=== PATIENT | male | born 1995 | race African-American/Black ===

== ENCOUNTER 2020-10-18 09:36 | Emergency (ER) | payer SELFPAY ==
[~2020-10-18] VITALS: Ht 175.3 cm; Wt 76.2 kg
[2020-10-18] MEDS ORDERED: ATIVAN2 MG PO (10:29)
== END 2020-10-18 10:38 | disposition home or self-care (01) ==
LOC: FSED 10:05
DX: F43.9 Reaction to severe stress, unspecified (principal); R94.31 Abnormal electrocardiogram [ECG] [EKG]
CPT/HCPCS: 93005; 99283

== ENCOUNTER 2020-10-25 13:02 | Emergency (ER) | payer SELFPAY ==
[~2020-10-25] VITALS: Ht 175.3 cm; Wt 76.2 kg
[~2020-10-25 13:02] MED LIST: ATIVAN2 MG PO
[2020-10-25] MEDS ORDERED: ATIVAN0.5 MG PO (14:10)
[2020-10-25 14:25] VITALS: BP 134/64
== END 2020-10-25 14:26 | disposition home or self-care (01) ==
LOC: FSED 13:30 → ER 14:26
DX: F41.9 Anxiety disorder, unspecified (principal); F43.9 Reaction to severe stress, unspecified
CPT/HCPCS: 99282

== ENCOUNTER 2020-12-07 17:01 | Emergency (ER) | payer SELFPAY ==
[~2020-12-07 17:01] MED LIST changes: +ATIVAN0.5 MG PO
== END 2020-12-07 18:36 | disposition home or self-care (01) ==
LOC: FSED 18:04
DX: R51.9 Headache, unspecified (principal); E86.1 Hypovolemia; E86.0 Dehydration
CPT/HCPCS: 99282

== ENCOUNTER 2021-02-04 04:05 | Emergency (ER) | payer SELFPAY ==
[~2021-02-04] VITALS: Ht 175.3 cm; Wt 75.7 kg
[2021-02-04] MEDS ORDERED: ACETAMINOPHEN500 MG PO (04:20)
[2021-02-04] MEDS ORDERED: IBUPROFEN IB200 MG PO (04:20)
[2021-02-04 04:26] VITALS: BP 138/73
== END 2021-02-04 04:26 | disposition home or self-care (01) ==
LOC: FSED 04:15
DX: K02.9 Dental caries, unspecified (principal)
CPT/HCPCS: 99282

== ENCOUNTER 2022-01-15 12:05 | Emergency (ER) | payer OTHER ==
[~2022-01-15] VITALS: Ht 177.8 cm; Wt 72.6 kg
[~2022-01-15 12:05] MED LIST changes: +ACETAMINOPHEN500 MG PO; +IBUPROFEN IB200 MG PO
[2022-01-15] MEDS ORDERED: CLARITIN-D 121 EACH PO (13:30)
[2022-01-15] MEDS ORDERED: IBUPROFEN600 MG PO (13:31)
[2022-01-15] MEDS ORDERED: FLONASE ALLERG9.9 ML INH (13:31)
== END 2022-01-15 13:45 | disposition home or self-care (01) ==
LOC: FSED 12:15
DX: J06.9 Acute upper respiratory infection, unspecified (principal); R05.9 Cough, unspecified; F41.9 Anxiety disorder, unspecified; R53.83 Other fatigue
CPT/HCPCS: 87400; 99282